=== PATIENT | male | born 1955 | race Asian ===

== ENCOUNTER → 2017-04-21 | Outpatient (CLI) | payer BC ==
--- NOTE | 2017-04-21 14:32 | REP ---
Clinical: Chronic medical renal disease. Technique: Real time feldman scale ultrasound examination using curved array transducer. Findings: The bilateral kidneys demonstrate normal reniform shape with mild bilateral cortical lobulations and prominent central sinus fat as well as evidence for renovascular calcifications. Right kidney measures 10.3 x 4.5 x 4.3 cm and includes extrarenal pelvis versus mild pelviectasis without yury hydronephrosis. The left kidney measures 11.4 x 4.5 x 4.6 cm and includes a 2.0 cm complex medial cyst. Prostate gland is heterogeneous and enlarged measuring 5.0 x 3.7 x 3.7 cm. Bladder demonstrates mild floating debris. Prevoid volume equals 197 ml. Postvoid volume equals 5.2 ml. Postvoid residual equals 2.6%. Impression: 1. Chronic medical renal disease with right extrarenal pelvis/pelviectasis and left 2 cm complex medial cyst. 2. Enlarged heterogeneous prostate gland. Signed by Jose Maria Delacruz MD 04/21/2017 02:24 P
== END ==
LOC: M RAD 11:33
PROVIDERS: ATTEND Internal Medicine Nephrology
DX: Q63.8 Other specified congenital malformations of kidney (principal); N28.1 Cyst of kidney, acquired; N40.0 Benign prostatic hyperplasia without lower urinary tract symptoms; N18.2 Chronic kidney disease, stage 2 (mild)

== ENCOUNTER → 2017-05-26 | Outpatient (CLI) | payer BC ==
[~2017-05-26] MED LIST: ISOVUE-370 76% 100ML VIAL (Q9967) As Ordered ONE
--- NOTE | 2017-05-26 14:42 | REP ---
CT ABDOMEN WITHOUT AND WITH IV CONTRAST: Without oral contrast. CT urogram. HISTORY: Neoplasm of the left kidney. Comparison sonography April 21, 2017 showed chronic medical renal disease with 2 cm complex medial cyst, left kidney. CT CONTRAST DOSE: 100 mL of intravenous Isovue 350. CT FINDINGS: The digital stacker straightener radiograph is unremarkable. Lung window settings demonstrate that the lung bases are clear. There is mild diffuse fatty infiltration of the liver. Some fat sparing is seen near the gallbladder. No focal liver lesion is seen. There is a small hepatic granuloma in the dome of the right lobe. No splenic abnormality is observed. No adrenal masses seen on either side. Pancreas is unremarkable. No gallbladder abnormality is seen. No retroperitoneal mass or adenopathy is observed. The kidneys enhance symmetrically. There is some multifocal cortical scarring present bilaterally, right more extensively than left. There is a low-density area in the left mid kidney anteriorly corresponding to the complex cyst seen on sonography. This shows no evidence of enhancement or mural nodule on the CT study. It measures 2.7 cm in greatest diameter and is felt to be compatible with benign simple cyst. No filling defect is seen in the collecting system. There are tiny cortical cysts on the right. No hydronephrosis seen. No calculus noted. IMPRESSION: 1. Fatty infiltration of the liver. 2. Benign simple cyst left mid kidney. 3. Mild bilateral renal cortical scarring . Signed by Judson Pate MD 05/26/2017 03:59 P
== END ==
LOC: M RAD 11:55
PROVIDERS: ATTEND Internal Medicine Nephrology
DX: D49.512 Neoplasm of unspecified behavior of left kidney (principal); K76.0 Fatty (change of) liver, not elsewhere classified; N28.1 Cyst of kidney, acquired
CPT/HCPCS: 74170; Q9967

== ENCOUNTER → 2018-01-12 | Outpatient (CLI) | payer BC | LOC: M RAD 10:39 | DX: N28.1 Cyst of kidney, acquired (principal) ==

== ENCOUNTER 2018-08-10 09:16 | Day surgery (SDC) | payer BC ==
[~2018-08-10] VITALS: Ht 170.2 cm; Wt 63.0 kg
[~2018-08-10 09:16] MED LIST changes: +ALLO100T PO; +ASPI81CH32 PO; -ISOVUE-370 76% 100ML VIAL (Q9967) As Ordered ONE; +JANU50TA4 PO; +LOPR1TAB6 PO; +LOSA50TA88 PO; +NS 1,000 ML IV ONE; +OMEP40CA2 PO; +PRAV40TA2 PO
[2018-08-10] MEDS ORDERED: LIDOCAINE 2% INJ 100 MG/5 ML SDV (FOR ANES.) As Ordered ONE (10:39)
[2018-08-10] MEDS ORDERED: PROPOFOL 500 MG/50 ML VIAL As Ordered ONE (10:39)
[2018-08-10] MEDS ORDERED: fentaNYL 100 MCG/2 ML INJECTION (J3010) As Ordered ONE (10:41)
[2018-08-10] MEDS ORDERED: ePHEDrine SULFATE 25 MG/5 ML(5MG/ML) SYRINGE As Ordered ONE (10:53)
--- NOTE | 2018-08-10 10:59 | ROOR ---
Patient Name: Severino Adhikari Procedure Date: 08/10/2018 10:38 AM Date of : 1955 Age: 63 Room: [facility] Gender: Male Note Status: Finalized Procedure: Upper GI endoscopy + Biopsies + Balloon Dilatation. Indications: Dysphagia, Heartburn, Exclusion of Dillard's esophagus Providers: Joel Rosado MD Referring MD: Dayday Gould Np Requesting Provider: Medicines: Monitored Anesthesia Care Complications: No immediate complications. Procedure: Pre-Anesthesia Assessment: - The heart rate, respiratory rate, oxygen saturations, blood pressure, adequacy of pulmonary ventilation, and response to care were monitored throughout the procedure. The Endoscope was introduced through the mouth, and advanced to the second part of duodenum. The upper GI endoscopy was accomplished without difficulty. The patient tolerated the procedure well. Findings: The Z-line was irregular and was found 40 cm from the incisors. Multiple biopsies were obtained with cold forceps for evaluation to rule out Dillard's Esophagus randomly at the gastroesophageal junction. A small hiatal hernia was present. A TTS dilator was passed through the scope. Dilation with an 18-19-20 mm balloon dilator was performed to 20 mm in the entire esophagus. No other significant abnormalities were identified in a careful examination of the stomach. Biopsies were taken with a cold forceps in the gastric antrum for Helicobacter pylori testing. The exam of the duodenum was otherwise normal. Impression: - Z-line irregular, 40 cm from the incisors. - Small hiatal hernia. - Multiple biopsies were obtained at the gastroesophageal junction. - Dilation performed in the entire esophagus. - Biopsies were taken with a cold forceps for Helicobacter pylori testing. - The examination was otherwise normal. Recommendation: - Patient has a contact number available for emergencies. The signs and symptoms of potential delayed complications were discussed with the patient. Return to normal activities tomorrow. Written discharge instructions were provided to the patient. - High fiber diet. - Discharge patient to home. - Follow an antireflux regimen. Joel Rosado MD Joel Rosado MD 08/10/2018 10:58:59 AM This report has been signed electronically. Number of Addenda: 0 Note Initiated On: 08/10/2018 10:38 AM Estimated Blood Loss: Estimated blood loss: none.
--- NOTE | 2018-08-10 11:17 | ROOR ---
Patient Name: Severino Adhikari Procedure Date: 08/10/2018 10:39 AM Date of : 1955 Age: 63 Room: [facility] Gender: Male Note Status: Finalized Procedure: Total Colonoscopy to Cecum + Cold Snare Polypectomy + Hemoclip Indications: Screening for colorectal malignant neoplasm Providers: Joel Rosado MD Referring MD: Dayday Gould Np Requesting Provider: Medicines: Monitored Anesthesia Care Complications: No immediate complications. Procedure: Pre-Anesthesia Assessment: - The heart rate, respiratory rate, oxygen saturations, blood pressure, adequacy of pulmonary ventilation, and response to care were monitored throughout the procedure. The Colonoscope was introduced through the anus and advanced to the cecum, identified by appendiceal orifice and ileocecal valve. The colonoscopy was performed without difficulty. The patient tolerated the procedure well. The quality of the bowel preparation was excellent. Findings: The perianal and digital rectal examinations were normal. Non-bleeding internal hemorrhoids were found during retroflexion. The hemorrhoids were small and Grade I (internal hemorrhoids that do not prolapse). A medium polyp was found at 25 cm proximal to the anus. The polyp was semi-pedunculated. The polyp was removed with a cold snare. Resection and retrieval were complete. To prevent bleeding after the polypectomy, one hemostatic clip was successfully placed (MR conditional). There was no bleeding at the end of the procedure. No other significant abnormalities were identified in a careful examination of the remainder of the colon. The exam was otherwise without abnormality. Impression: - Non-bleeding internal hemorrhoids. - One medium polyp at 25 cm proximal to the anus, removed with a cold snare. Resected and retrieved. Clip (MR conditional) was placed. - The examination was otherwise normal. - The exam was otherwise normal to the cecum. Recommendation: - Patient has a contact number available for emergencies. The signs and symptoms of potential delayed complications were discussed with the patient. Return to normal activities tomorrow. Written discharge instructions were provided to the patient. - High fiber diet. - Discharge patient to home. - Continue present medications. - Await pathology results. - Telephone GI clinic for pathology results in 1 week. - Repeat colonoscopy for surveillance based on pathology results. - Return to referring physician. - Check Portal Online for Path Results.([email or web address]) - The findings and recommendations were discussed with the patient's family. Joel Rosado MD Joel Rosado MD 08/10/2018 11:17:10 AM This report has been signed electronically. Number of Addenda: 0 Note Initiated On: 08/10/2018 10:39 AM Estimated Blood Loss: Estimated blood loss: none.
[2018-08-10 11:40] VITALS: BP 107/75
== END 2018-08-10 11:52 | disposition home or self-care (01) ==
LOC: M OPP 09:16
PROVIDERS: ATTEND Internal Medicine Gastroenterology
DX: Z12.11 Encounter for screening for malignant neoplasm of colon (principal); K64.0 First degree hemorrhoids; D12.6 Benign neoplasm of colon, unspecified; K22.8 Other specified diseases of esophagus; K44.9 Diaphragmatic hernia without obstruction or gangrene; R13.10 Dysphagia, unspecified; R12 Heartburn; K21.9 Gastro-esophageal reflux disease without esophagitis; Z79.899 Other long term (current) drug therapy; Z91.040 Latex allergy status
CPT/HCPCS: 43239; 43249; 45385; 88305; J3010